=== PATIENT | female | born 1980 | race Hispanic/Latino ===

== ENCOUNTER 2017-12-12 09:50 | Emergency (ER) | payer BC, OTHER ==
[~2017-12-12] VITALS: Ht 167.6 cm; Wt 99.8 kg
[2017-12-12 10:58] LABS: BASOPHILS # (AUTO) 0.1 (0.0-0.1); BASOPHILS % 0.8 % (0.0-1.0); EOSINOPHILS # (AUTO) 0.1 (0.0-0.4); EOSINOPHILS % 1.5 % (0.0-6.0); HEMATOCRIT 44.9 % (34.2-44.1); HEMOGLOBIN 14.5 g/dL (12.0-16.0); LYMPHOCYTES # (AUTO) 2.9 (1.0-3.2); MEAN CORPUSCULAR HEMOGLOBIN 31.6 pg (28-32); MEAN CORPUSCULAR HGB CONC 32.3 g/dL (31-35); MEAN CORPUSCULAR VOLUME 97.8 fL (81-99); MONOCYTES # (AUTO) 0.5 (0.2-0.8); MONOCYTES % 7.2 % (4.4-11.3); NEUTROPHILS # (AUTO) 3.9 (2.1-6.9); NEUTROPHILS % 51.2 % (38.7-80.0); PLATELET COUNT 257 x10e3/uL (140-360); RED BLOOD COUNT 4.59 x10e6/uL (3.6-5.1); RED CELL DISTRIBUTION WIDTH 12.4 % (11.7-14.4)
[2017-12-12 11:09] LABS: BILIRUBIN,URINE NEGATIVE (NEGATIVE); COLOR,URINE YELLOW (YELLOW); KETONES,URINE NEGATIVE (NEGATIVE); LEUKOCYTE ESTERASE ,URINE NEGATIVE (NEGATIVE); NITRITE,URINE NEGATIVE (NEGATIVE); PROTEIN,URINE DIPSTICK NEGATIVE (NEGATIVE); URINE UROBILINOGEN 0.2 mg/dL (0.2 - 1)
[2017-12-12 11:10] LABS: INR 0.91; PROTHROMBIN TIME 12.7 seconds (11.9-14.5)
[2017-12-12 11:17] LABS: ALANINE AMINOTRANSFERASE 72 IU/L (0-55); ALBUMIN/GLOBULIN RATIO 0.9 (0.8-2.0); ALKALINE PHOSPHATASE 102 IU/L (40-150); AMYLASE 49 U/L (25-125); ANION GAP 12.8 mmol/L (8-16); BLOOD UREA NITROGEN 10 mg/dL (7-26); BUN/CREATININE RATIO 14 (6-25); CALCIUM 9.4 mg/dL (8.4-10.2); CARBON DIOXIDE 24 mmol/L (22-29); CHLORIDE 103 mmol/L (98-107); CREATININE, SERUM 0.73 mg/dL (0.57-1.11); EST GLOMERULAR FILTRATION RATE > 60 ML/MIN (60-); GLUCOSE 96 mg/dL (74-118); LIPASE 19 U/L (8-78); POTASSIUM 3.8 mmol/L (3.5-5.1); SODIUM 136 mmol/L (136-145)
[2017-12-12 11:19] LABS: CLARITY,URINE CLEAR (CLEAR)
[2017-12-12 11:21] LABS: BACTERIA,URINE FEW /HPF; EPITHELIAL CELLS,URINE MODERATE /LPF; RBC,URINE 0-5 /HPF (0-5)
--- NOTE | 2017-12-12 11:59 | Diagnostic Imaging Report ---
PROCEDURE:CHEST 2 VIEWS TECHNIQUE:PA and lateral chest INDICATION:Right breast pain COMPARISON:None. FINDINGS: Right hemidiaphragm elevation. The lungs are otherwise clear. No pleural effusions. Normal heart size and mediastinal contour. Intact skeleton. Cholecystectomy clips. CONCLUSION: 1. Right hemidiaphragm elevation. Correlate for hepatomegaly. 2. No acute cardiopulmonary abnormality. Dictated by: Sajan Mccormick M.D. on 12/12/2017 at 12:08 Electronically approved by: Sajan Mccormick M.D. on 12/12/2017 at 12:08
[2017-12-12] MEDS ORDERED: IOPAMIDOL 300MG/ML 100 ML INFUS..BTL IV ONE (13:58)
[2017-12-12] MEDS ORDERED: SODIUM CHLORIDE 0.9% 50ML 50 ML ONE (13:58)
[2017-12-12] MEDS ORDERED: IOPAMIDOL 370 MG/ML 200 ML INFUS..BTL INJ ONE (14:00)
--- NOTE | 2017-12-12 15:45 | Diagnostic Imaging Report ---
EXAM: CT Chest WITH contrast 12/12/2017 1:14 PM INDICATION: Chest pain. Concern for pulmonary bolus and. COMPARISON: None TECHNIQUE: Chest was scanned utilizing a multidetector helical scanner from the lung apex through the level of the adrenal glands without administration of IV contrast. Coronal and sagittal reformations were obtained. Routine protocol was performed. IV CONTRAST: 100 mL of Omnipaque 300 RADIATION DOSE: Total DLP: 464.80 mGy*cm Estimated effective dose: (DLP x 0.014 x size factor) mSv COMPLICATIONS: None FINDINGS: LINES/ TUBES: None. LUNGS AND AIRWAYS: No filling defects within the pulmonary arteries to the resolved segmental level to suggest pulmonary embolism. Bilateral hypoinflation. Moderate elevation of the right hemidiaphragm which may be related to right hemidiaphragm dysfunction. Upward displacement of the liver results in mild mass effect on the right sided cardiac chambers. Mild prominence of the pulmonary vasculature bilaterally may represent mild congestion. Tiny calcified granuloma in the posterior right lung base on image 53 series 3. The airways are normal. PLEURA: No pleural effusion or pneumothorax. HEART AND MEDIASTINUM: The thyroid gland is normal. No mediastinal, hilar or axillary lymphadenopathy. The heart is normal in size.. There is no pericardial effusion. UPPER ABDOMEN: Limited non-contrast views of the upper abdomen show low attenuation of the hepatic rectum, suggestive of steatosis. Status post cholecystectomy. BONES: No acute osseous abnormality. SOFT TISSUES: Unremarkable. IMPRESSION: 1. No evidence of pulmonary embolism as per clinical query. 2. Moderate to elevation of the right hemidiaphragm may represent diaphragmatic dysfunction. It results in mild mass effect on the right-sided cardiac chambers. 3. Mild prominence of the pulmonary vasculature may represent mild pulmonary venous congestion. Signed by: Dr. Monalisa Olivera M.D. on 12/12/2017 3:42 PM
== END 2017-12-12 18:03 | disposition home or self-care (01) ==
LOC: ER 09:50
DX: R10.11 Right upper quadrant pain (principal); R07.89 Other chest pain; E11.9 Type 2 diabetes mellitus without complications
CPT/HCPCS: 36415; 71020; 71260; 80053; 81001; 82150; 83690; 84702; 85025; 85379; 85610; 85730; 87086; 99284; Q9967 ×2